=== PATIENT | male | born 1975 | race Caucasian/White ===

== ENCOUNTER 2020-01-05 20:45 | Emergency (ER) | payer OTHER ==
[~2020-01-05] VITALS: Ht 200.7 cm; Wt 90.7 kg
[2020-01-05] MEDS ORDERED: MOBIC15 MG PO (23:12)
[2020-01-05 23:24] VITALS: BP 112/74
== END 2020-01-05 23:25 | disposition home or self-care (01) ==
LOC: ER 20:45
DX: B34.9 Viral infection, unspecified (principal); F17.210 Nicotine dependence, cigarettes, uncomplicated; Z20.828 Contact with and (suspected) exposure to other viral communicable diseases